=== PATIENT | male | born 1995 | race Caucasian/White ===

== ENCOUNTER 2018-01-07 15:14 | Emergency (ER) | payer OTHER ==
[~2018-01-07] VITALS: Ht 170.2 cm; Wt 127.0 kg
[2018-01-07] MEDS ORDERED: VENTOLIN HFA 1818 GM INH (16:16)
[2018-01-07] MEDS ORDERED: PREDNISONE 20 M20 MG PO (16:16)
== END 2018-01-07 16:41 | disposition home or self-care (01) ==
LOC: ER 15:14
DX: J98.01 Acute bronchospasm (principal); Z57.2 Occupational exposure to dust